=== PATIENT | male | born 1960 | race Hispanic/Latino ===

== ENCOUNTER 2023-07-06 15:46 | Inpatient (IN) | payer MEDICARE ==
[2023-07-06 16:53] LABS: ALT (SGPT) 23 U/L (8-55); AST (SGOT) 27 U/L (5-34); Albumin 3.5 g/dL (3.4-4.8); Alkaline Phosphatase 76 U/L (40-110); Anion Gap 16 mmol/L (10-20); BUN (Urea Nitrogen) 12 mg/dL (8.4-25.7); Bilirubin, Total 0.6 mg/dL (0.2-1.2); Calc. Creatinine Clearance 0 mL/min (70-130); Carbon Dioxide 23 mmol/L (23-31); Chloride 93 mmol/L (98-107); Estimated GFR 96; Globulin 3.6 g/dL (2.4-3.5); Glucose 108 mg/dL (80-115); Potassium 3.7 mmol/L (3.5-5.1); Protein, Total 7.1 g/dL (5.8-8.1); Sodium 128 mmol/L (136-145)
[2023-07-06 17:00] LABS: Troponin I Less than 0.010 ng/mL (< 0.028)
[2023-07-06 17:07] LABS: #Eosinphils 0.2 10x3/uL (0.0-0.5); #Monocytes 1.8 10x3/uL (0.0-1.1); #Neutrophils 9.6 10x3/uL (1.5-8.4); %Basophils 0.1 % (0.0-2.0); %Eosinophils 1.6 % (0.0-6.0); %Lymphocytes 11.4 % (18.0-47.0); %Monocytes 13.8 % (0.0-10.0); %Neutrophils 72.1 % (40.0-75.0); Hematocrit 36.9 % (38.8-50.0); Hemoglobin 13.4 g/dL (13.5-17.5); Mean Corpuscular HGB CONC 36.3 g/dL (32.0-36.0); Mean Corpuscular Hemoglobin 31.9 pg (27.0-33.0); Mean Corpuscular Volume 87.9 fl (81.2-95.1); Platelet Count 357 10x3/uL (150-450); RBC Distribution Width 12.4 % (11.5-14.5); White Blood Cell (WBC) Count 13.4 10x3/uL (3.5-10.5)
[2023-07-06] MEDS ORDERED: Ipratropium/Albuterol 3 ML NEB ONE (17:19)
[2023-07-06] MEDS ORDERED: Azithromycin 500 MG VIAL ONE (17:35)
[2023-07-06] MEDS ORDERED: methylPREDNISolone Sod Succ/PF 125 MG/2 ML VIAL ONE (17:35)
[2023-07-06] MEDS ORDERED: cefTRIAXone (ROCEPHIN) 1 GM VIAL ONE (17:35)
[2023-07-06] MEDS ORDERED: Ondansetron PF 4 MG/2 ML Vial IVP PRN (19:12)
[2023-07-06] MEDS ORDERED: Ipratropium/Albuterol 3 ML NEB NEB PRN ×2 (19:12→22:50)
[2023-07-06] MEDS ORDERED: Ondansetron ODT 4 MG TAB PO PRN ×2 (19:12→22:44)
[2023-07-06] MEDS ORDERED: Acetaminophen 325 MG TAB PO PRN (19:12)
[2023-07-06] MEDS ORDERED: Acetaminophen 650 MG Suppository PR PRN (19:12)
[2023-07-06] MEDS ORDERED: Bisacodyl 5 MG TAB PO PRN (19:12)
[2023-07-06] MEDS ORDERED: Senokot S 8.6-50 MG TAB PO PRN (19:12)
[2023-07-06] MEDS ORDERED: Electrolyte Replacement Protocol 1 EACH FS SCH (19:15)
[2023-07-06 19:45] LABS: Magnesium 1.5 mg/dL (1.6-2.6); Phosphorus 2.6 mg/dL (2.3-4.7)
[2023-07-06] MEDS: Sodium Chloride 0.9% 1,000 ML IV SCH (20:16)
[2023-07-06] MEDS ORDERED: Famotidine 20 MG TAB ONE (21:04)
[2023-07-06] MEDS: Famotidine 20 MG TAB PO SCH (21:07)
[2023-07-06] MEDS ORDERED: Lorazepam 2 MG/ML VIAL IM PRN (22:44)
[2023-07-06] MEDS ORDERED: Lorazepam 1 MG TAB PO PRN (22:44)
[2023-07-06] MEDS ORDERED: Electrolyte Replacement Protocol 1 EACH FS PRN (22:45)
[2023-07-06] MEDS ORDERED: Magnesium 2 GM/50 ML BAG (IN WATER) ONE (22:53)
[2023-07-06] MEDS ORDERED: hydrALAZINE 20 MG/ML VIAL SLOW IVP PRN (22:54)
[2023-07-06] MEDS ORDERED: Sodium Chloride 0.65% Nasal 44 ML BOT EA NARE PRN (22:54)
[2023-07-06] MEDS ORDERED: GUAIFENESIN SF SOLN 200 MG/10 ML UDCUP PO PRN (22:54)
[2023-07-06] MEDS ORDERED: Labetalol HCl 100 MG/20 ML VIAL SLOW IVP PRN (22:54)
[2023-07-06] MEDS ORDERED: Artificial Tear Sol 15 ML BOT EA EYE PRN (22:54)
[2023-07-06] MEDS ORDERED: Moisturizing Cream (Eucerin) 113 GM JAR TOP PRN (22:54)
[2023-07-06] MEDS ORDERED: Benzonatate 100 MG CAP PO PRN (22:54)
[2023-07-06] MEDS ORDERED: Magnesium 2 GM/50 ML(in water) 2 GM in Premix 1 BAG IVPB SCH (23:00)
[2023-07-06] MEDS ORDERED: Thiamine HCl 200 MG/2 ML VIAL SLOW IVP SCH (23:00)
[2023-07-06] MEDS ORDERED: methylPREDNISolone Sod Succ 40 MG VIAL ONE (23:01)
[2023-07-06] MEDS ORDERED: Thiamine HCl 200 MG/2 ML VIAL ONE (23:01)
[2023-07-06] MEDS: methylPREDNISolone Sod Succ 40 MG VIAL IVP SCH (23:07)
[2023-07-06] MEDS ORDERED: Nicotine 7 MG PATCH TD SCH (23:59)
[2023-07-07] MEDS ORDERED: Benzonatate 100 MG CAP ONE (00:40)
[2023-07-07] MEDS: Sodium Chloride 0.9% 1,000 ML IV SCH (03:35)
[2023-07-07] MEDS ORDERED: Ipratropium/Albuterol 3 ML NEB ONE ×2 (03:48→06:45)
[2023-07-07] MEDS: Ipratropium/Albuterol 3 ML NEB NEB SCH ×4 (03:56→15:05)
[2023-07-07 04:33] LABS: Anion Gap 13 mmol/L (10-20); BUN (Urea Nitrogen) 11 mg/dL (8.4-25.7); Calc. Creatinine Clearance 104 mL/min (70-130); Calcium 9.1 mg/dL (7.8-10.44); Carbon Dioxide 21 mmol/L (23-31); Chloride 99 mmol/L (98-107); Estimated GFR 101; Glucose 174 mg/dL (80-115); Phosphorus 3.5 mg/dL (2.3-4.7); Sodium 129 mmol/L (136-145)
[2023-07-07 04:43] LABS: Hematocrit 34.6 % (38.8-50.0); Hemoglobin 12.6 g/dL (13.5-17.5); MDiff Complete? YES; Mean Corpuscular HGB CONC 36.4 g/dL (32.0-36.0); Mean Corpuscular Hemoglobin 31.9 pg (27.0-33.0); Mean Corpuscular Volume 87.6 fl (81.2-95.1); Mean Platelet Volume 10.3 fl (7.4-10.4); Platelet Count 335 10x3/uL (150-450); RBC Distribution Width 12.2 % (11.5-14.5); Red Blood Cell (RBC) Count 3.95 10x6/uL (4.32-5.72); White Blood Cell (WBC) Count 3.4 10x3/uL (3.5-10.5)
[2023-07-07 07:06] LABS: Lymphocytes 17 % (21-51); Monocytes 4 % (0-10); Neutrophil 78 % (42-75); Other Cell Types 1
[2023-07-07 07:07] LABS: Platelet Adequacy Comment Appears Adequate
[2023-07-07] MEDS ORDERED: Magnesium 2 GM/50 ML(in water) 2 GM in Premix 1 BAG IVPB SCH (09:00)
[2023-07-07] MEDS ORDERED: Enoxaparin 40 MG (0.4 mL) SYRINGE SC SCH (09:00)
[2023-07-07] MEDS ORDERED: Multivit, Therapeutic 1 TAB PO SCH (09:00)
[2023-07-07] MEDS ORDERED: Folic Acid 1 MG TAB PO SCH (09:00)
[2023-07-07 09:05] VITALS: BMI 28.4
[2023-07-07] MEDS: Famotidine 20 MG TAB PO SCH (09:35)
[2023-07-07 10:41] LABS: Legionella Urinary Ag Negative (Negative); Strep pneumo Urine Ag NEGATIVE (NEGATIVE)
[2023-07-07 11:05] LABS: SARS-CoV-2 NAA Rapid Test Not Detected (NotDetected)
[2023-07-07] MEDS: methylPREDNISolone Sod Succ 40 MG VIAL IVP SCH (11:20)
[2023-07-07] MEDS ORDERED: FLU VACC QS2023(65UP)/MF59C/PF 60 MCG/0.5 ML SYRINGE IM ONE (16:00)
[2023-07-07] MEDS ORDERED: cefTRIAXone\\ROCEPHIN 1 GM in Sodium Chloride 0.9% 100 ML IVPB SCH (17:00)
[2023-07-07 17:08] VITALS: BP 136/65; TEMP 97.6
[2023-07-07] MEDS ORDERED: Azithromycin 500 MG in Sodium Chloride 0.9% 250 ML 250 ML IVPB SCH (18:00)
[2023-07-07] MEDS ORDERED: Lorazepam 1 MG TAB PO PRN (22:44)
[2023-07-08] MEDS ORDERED: Lorazepam 1 MG TAB PO PRN (22:44)
[2023-07-09] MEDS ORDERED: Lorazepam 0.5 MG TAB PO PRN (22:44)
[2023-07-09] MEDS ORDERED: Thiamine 100 MG TAB PO SCH (23:00)
== END 2023-07-07 17:00 | disposition home or self-care (01) | DRG 194 ==
LOC: CSHERS 15:46 → CSHERHOLD 17:26 → CSHTELE 07-07 08:27
PROVIDERS: ADMIT Emergency Medicine; ATTEND Internal Medicine
DX: J18.9 Pneumonia, unspecified organism (principal); E87.1 Hypo-osmolality and hyponatremia; J44.1 Chronic obstructive pulmonary disease with (acute) exacerbation; F19.10 Other psychoactive substance abuse, uncomplicated; F17.210 Nicotine dependence, cigarettes, uncomplicated; F10.10 Alcohol abuse, uncomplicated; D64.9 Anemia, unspecified; I95.9 Hypotension, unspecified; Z11.52 Encounter for screening for COVID-19
CPT/HCPCS: 0241U; 36415; 71045; 80048; 80053; 83605; 83735; 83880; 84100; 84145; 84484; 85025; 87040; 87449; 87899; 93005; 94640; 94760; J0456; J0696; J1650; J2920; J2930; J3411; J3475; J3490; J7050; J7620

== ENCOUNTER 2023-07-20 20:03 | Emergency (ER) | payer MEDICARE ==
[2023-07-20 21:47] LABS: Hematocrit 33.5 % (38.8-50.0); Hemoglobin 11.7 g/dL (13.5-17.5); Mean Corpuscular HGB CONC 34.9 g/dL (32.0-36.0); Mean Corpuscular Hemoglobin 31.9 pg (27.0-33.0); Mean Corpuscular Volume 91.3 fl (81.2-95.1); Mean Platelet Volume 8.6 fl (7.4-10.4); Platelet Count 359 10x3/uL (150-450); RBC Distribution Width 13.3 % (11.5-14.5); Red Blood Cell (RBC) Count 3.67 10x6/uL (4.32-5.72); White Blood Cell (WBC) Count 15.4 10x3/uL (3.5-10.5)
[2023-07-20 21:51] LABS: MDiff Complete? YES
[2023-07-20 21:53] LABS: ALT (SGPT) 16 U/L (8-55); AST (SGOT) 19 U/L (5-34); Albumin 3.7 g/dL (3.4-4.8); Alkaline Phosphatase 77 U/L (40-110); Anion Gap 12 mmol/L (10-20); BUN (Urea Nitrogen) 6 mg/dL (8.4-25.7); Bilirubin, Total 0.2 mg/dL (0.2-1.2); Calc. Creatinine Clearance 0 mL/min (70-130); Calcium 9.1 mg/dL (7.8-10.44); Carbon Dioxide 23 mmol/L (23-31); Chloride 105 mmol/L (98-107); Estimated GFR 98; Globulin 3.1 g/dL (2.4-3.5); Glucose 89 mg/dL (80-115); Potassium 4.6 mmol/L (3.5-5.1); Protein, Total 6.8 g/dL (5.8-8.1); Sodium 135 mmol/L (136-145)
[2023-07-20 22:00] LABS: Troponin I Less than 0.010 ng/mL (< 0.028)
[2023-07-20 22:03] LABS: Lymphocytes 23 % (21-51); Neutrophil 17 % (42-75)
[2023-07-20 22:05] LABS: Eosinophils 54 % (0-10); Monocytes 6 % (0-10)
[2023-07-20 22:06] LABS: Platelet Adequacy Comment Appears Adequate; Reflex for Review?? YES
[2023-07-20 22:07] LABS: RBC Morph Comment Within Normal Limits
== END 2023-07-20 23:15 | disposition home or self-care (01) ==
LOC: CSHERS 20:03
DX: J44.1 Chronic obstructive pulmonary disease with (acute) exacerbation (principal); F17.210 Nicotine dependence, cigarettes, uncomplicated
CPT/HCPCS: 71045; 80053; 83880; 84484; 85025; 85060; 93005

== ENCOUNTER 2024-02-25 20:45 | Observation (INO) | payer MEDICARE, MEDICAID ==
[~2024-02-25 20:45] MED LIST: Iopamidol 370 76% 100 ML VIAL ONE
[2024-02-25] MEDS ORDERED: Acetaminophen 500 MG TAB ONE (21:20)
[2024-02-25 21:30] LABS: Bilirubin Neg (Negative); Blood, Urine Negative (Negative); Clarity Clear (Clear); Glucose, Urine (Dipstick) Normal (Negative); Ketone, Urine Negative (Negative); Leukocyte Negative (Negative); Nitrite Negative (Negative); Protein, Urine (Dipstick) Negative (Neg-Trace); Specific Gravity, Urine 1.015 (1.005-1.030); Urobilinogen Normal mg/dL (Less than 2)
[2024-02-25 21:38] LABS: #Basophils 0.04 10x3/uL (0.0-0.2); #Eosinphils 0.91 10x3/uL (0.0-0.5); #Monocytes 0.53 10x3/uL (0.0-1.1); #Neutrophils 3.22 10x3/uL (1.5-8.4); %Basophils 0.6 % (0.0-2.0); %Lymphocytes 27.5 % (18.0-47.0); %Monocytes 8.1 % (0.0-10.0); %Neutrophils 49.3 % (40.0-75.0); Hematocrit 34.6 % (38.8-50.0); Hemoglobin 12.3 g/dL (13.5-17.5); Mean Corpuscular HGB CONC 35.5 g/dL (32.0-36.0); Mean Corpuscular Hemoglobin 31.9 pg (27.0-33.0); Mean Corpuscular Volume 89.9 fL (81.2-95.1); Mean Platelet Volume 8.5 fL (7.4-10.4); Platelet Count 258 10x3/uL (150-450); RBC Distribution Width 12.8 % (11.5-14.5); Red Blood Cell (RBC) Count 3.85 10x6/uL (4.32-5.72); White Blood Cell (WBC) Count 6.5 10x3/uL (3.5-10.5)
[2024-02-25 21:43] LABS: Bacteria/HPF None Seen HPF (None Seen); CAUTI Indications for Culture Pelvic or flank pain; RBC/HPF None Seen HPF (0-3); Squamous Epithelial 0-3 HPF (0-3); Urine Culture Reflex No No; WBC/HPF None Seen HPF (0-3)
[2024-02-25 21:50] LABS: ALT (SGPT) 14 U/L (8-55); AST (SGOT) 23 U/L (5-34); Albumin 3.4 g/dL (3.4-4.8); Alkaline Phosphatase 93 U/L (40-110); Anion Gap 16 mmol/L (10-20); BUN (Urea Nitrogen) 5 mg/dL (8.4-25.7); Bilirubin, Total 0.2 mg/dL (0.2-1.2); Calc. Creatinine Clearance 0 mL/min (70-130); Calcium 8.7 mg/dL (7.8-10.44); Carbon Dioxide 19 mmol/L (23-31); Chloride 100 mmol/L (98-107); Estimated GFR 102; Globulin 2.9 g/dL (2.4-3.5); Glucose 87 mg/dL (80-115); Lipase 64 U/L (8-78); Potassium 3.7 mmol/L (3.5-5.1); Protein, Total 6.3 g/dL (5.8-8.1); Sodium 131 mmol/L (136-145)
[2024-02-25 21:56] LABS: Troponin I Less than 0.010 ng/mL (< 0.028)
[2024-02-26 00:20] LABS: Lactic Acid 2.6 mmol/L (0.5-2.2)
[2024-02-26] MEDS ORDERED: Senokot S 8.6-50 MG TAB PO PRN (03:27)
[2024-02-26] MEDS ORDERED: Ondansetron PF 4 MG/2 ML Vial IVP PRN (03:27)
[2024-02-26] MEDS ORDERED: Acetaminophen 325 MG TAB PO PRN (03:27)
[2024-02-26] MEDS ORDERED: Calcium Carbonate 500 MG ChewTAB PO PRN (03:27)
[2024-02-26] MEDS ORDERED: Ipratropium/Albuterol 3 ML NEB NEB PRN (03:32)
[2024-02-26] MEDS ORDERED: Vancomycin 1 GM VIAL ONE (03:32)
[2024-02-26] MEDS ORDERED: Cefepime 2 GM VIAL ONE (03:32)
[2024-02-26 04:46] VITALS: BMI 18.1
[2024-02-26] MEDS: Dextrose 5 % And 0.9 % NaCl 1,000 ML IV SCH (05:23)
[2024-02-26] MEDS: Pantoprazole DR 40 MG TAB PO SCH (05:33)
[2024-02-26] MEDS: Potassium Chloride 20 MEQ TAB PO SCH (05:33)
[2024-02-26] MEDS: Lorazepam 0.5 MG TAB PO SCH (05:33)
[2024-02-26] MEDS: Nicotine 14 MG PATCH TD SCH (05:33)
[2024-02-26] MEDS: Tamsulosin HCl 0.4 MG CAP PO SCH (05:34)
[2024-02-26] MEDS: metroNIDAZOLE 500 MG in Premix 1 BAG IVPB SCH (05:34)
[2024-02-26] MEDS: Thiamine HCl 200 MG/2 ML VIAL SLOW IVP SCH (05:34)
[2024-02-26 06:51] LABS: Amphetamine Not Detected (NotDetected); Barbiturates Screen Not Detected (NotDetected); Benzodiazepine Screen Not Detected (NotDetected); Cocaine Metabolite Screen Detected (NotDetected); Methadone Not Detected (NotDetected); Methamphetamine Not Detected (NotDetected); Opiate Screen Not Detected (NotDetected); Oxycodone Screen Not Detected (NotDetected); Phencyclidine (PCP) Not Detected (NotDetected); THC/Cannabinoid Screen Not Detected (NotDetected); Tricyclic Screen Not Detected (NotDetected)
[2024-02-26 07:14] LABS: Influenza A by NAA Not Detected (NotDetected); Influenza B by NAA Not Detected (NotDetected); RSV by NAA Not Detected (NotDetected); SARS-CoV-2 NAA Rapid Test Not Detected (NotDetected)
[2024-02-26] MEDS: Mometasone 200 MCG/Formoterol 5 MCG 60 PUFF INHALER INH SCH (07:28)
[2024-02-26] MEDS: Polyethylene Glycol 3350 17 GM Packet PO SCH (08:05)
[2024-02-26] MEDS: Multivitamin W/ Minerals 1 TAB PO SCH (08:06)
[2024-02-26] MEDS: Enoxaparin 40 MG (0.4 mL) SYRINGE SC SCH (08:06)
[2024-02-26] MEDS: Folic Acid 1 MG TAB PO SCH (08:06)
[2024-02-26] MEDS: traMADol HCl 50 MG TAB PO PRN (09:30)
[2024-02-26 10:19] VITALS: BP 142/67; TEMP 98.9
[2024-02-26 10:31] VITALS: BMI 18.1
[2024-02-26 11:12] LABS: #Basophils 0.04 10x3/uL (0.0-0.2); #Eosinphils 1.03 10x3/uL (0.0-0.5); #Monocytes 0.83 10x3/uL (0.0-1.1); #Neutrophils 5.05 10x3/uL (1.5-8.4); %Basophils 0.5 % (0.0-2.0); %Eosinophils 12.2 % (0.0-6.0); %Lymphocytes 17.3 % (18.0-47.0); %Monocytes 9.8 % (0.0-10.0); Hematocrit 37.3 % (38.8-50.0); Hemoglobin 12.7 g/dL (13.5-17.5); Mean Corpuscular Hemoglobin 31.1 pg (27.0-33.0); Mean Corpuscular Volume 91.4 fL (81.2-95.1); Mean Platelet Volume 8.8 fL (7.4-10.4); Platelet Count 283 10x3/uL (150-450); RBC Distribution Width 12.9 % (11.5-14.5); Red Blood Cell (RBC) Count 4.08 10x6/uL (4.32-5.72); White Blood Cell (WBC) Count 8.4 10x3/uL (3.5-10.5)
[2024-02-26 11:23] LABS: Lactic Acid 1.9 mmol/L (0.5-2.2)
[2024-02-26 11:26] LABS: ALT (SGPT) 16 U/L (8-55); AST (SGOT) 26 U/L (5-34); Albumin 3.7 g/dL (3.4-4.8); Alkaline Phosphatase 97 U/L (40-110); Anion Gap 11 mmol/L (10-20); BUN (Urea Nitrogen) 6 mg/dL (8.4-25.7); Bilirubin, Total 0.3 mg/dL (0.2-1.2); Calc. Creatinine Clearance 64 mL/min (70-130); Calcium 9.3 mg/dL (7.8-10.44); Carbon Dioxide 22 mmol/L (23-31); Chloride 103 mmol/L (98-107); Estimated GFR 101; Globulin 3.4 g/dL (2.4-3.5); Glucose 110 mg/dL (80-115); Magnesium 1.5 mg/dL (1.6-2.6); Potassium 4.4 mmol/L (3.5-5.1); Protein, Total 7.1 g/dL (5.8-8.1); Sodium 132 mmol/L (136-145)
[2024-02-26] MEDS: cefTRIAXone\\ROCEPHIN 1 GM in Sodium Chloride 0.9% 100 ML IVPB SCH (13:53)
[2024-02-26] MEDS ORDERED: Tamsulosin HCl 0.4 MG CAP PO SCH (21:00)
[2024-02-27] MEDS ORDERED: Pantoprazole DR 40 MG TAB PO SCH (09:00)
[2024-02-27] MEDS ORDERED: Nicotine 14 MG PATCH TD SCH (09:00)
[2024-02-27] MEDS ORDERED: Thiamine HCl 200 MG/2 ML VIAL SLOW IVP SCH (09:00)
[2024-02-27] MEDS ORDERED: Enoxaparin 30 MG (0.3 mL) SYRINGE SC SCH ×2 (09:00)
== END 2024-02-26 14:37 | disposition home or self-care (01) ==
LOC: CSHERS 20:45 → CSHTELE 02-26 03:34
PROVIDERS: ADMIT Student in an Organized Health Care Education/Training Program; ATTEND Internal Medicine
DX: R42 Dizziness and giddiness (principal); R06.02 Shortness of breath; F17.200 Nicotine dependence, unspecified, uncomplicated; I10 Essential (primary) hypertension; E87.20 Acidosis, unspecified; R33.8 Other retention of urine; E87.1 Hypo-osmolality and hyponatremia; K59.00 Constipation, unspecified; F10.90 Alcohol use, unspecified, uncomplicated; Z90.49 Acquired absence of other specified parts of digestive tract; Z79.899 Other long term (current) drug therapy; Z87.891 Personal history of nicotine dependence
CPT/HCPCS: 0241U; 71045; 74177; 80053; 80306; 81001; 81003; 83605 ×2; 83690; 83735; 84145; 84484; 85025; 86140; 87040; 87086; 93005; 94640; 96374; 96375; G0378 ×2; J0692; J3370; J3411; Q9967; 36415; 84443; 96361